=== PATIENT | male | born 1960 | race Caucasian/White ===

== ENCOUNTER 2018-06-20 09:51 | Emergency (ER) | payer OTHER ==
[2018-06-20 10:15] VITALS: BP 157/100
--- NOTE | 2018-06-20 11:38 | EDM.PDOC ---
ED HPI GENERAL MEDICAL PROBLEM - General Chief Complaint: Laceration Stated Complaint: FINGER PAIN Time Seen by Provider: 06/20/18 11:03 Source of Information: Reports: Patient History Limitations: Reports: No Limitations - History of Present Illness INITIAL COMMENTS - FREE TEXT/NARRATIVE: Patient is a 58-year-old male who presents ED complaining of a crack to the lateral aspect of the nail fold. This to the distal aspect of the finger. Tracks been present for the past 2 weeks and has not healed. Pain is localized with no swelling, redness, no drainage. There's been no recent trauma that precipitated this. 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 Patient at times does wear gloves. He is wondering what other treatment modalities may improve this condition. - Related Data Allergies Allergy/AdvReac Type Severity Reaction Status Date / Time Penicillins Allergy Respiratory Verified 06/20/18 10:15 Distress Home Meds: Home Meds buPROPion [Wellbutrin] 300 mg PO DAILY 11/30/15 [History] Past Medical History - Past Health History Medical/Surgical History: Denies Medical/Surgical History Psychiatric History: Reports: Depression Social & Family History - Family History Family Medical History: Noncontributory - Tobacco Use Smoking Status *Q: Current Every Day Smoker Years of Tobacco use: 40 Packs/Tins Daily: 0.7 Second Hand Smoke Exposure: No - Caffeine Use Caffeine Use: Reports: Coffee - Recreational Drug Use Recreational Drug Use: No ED ROS GENERAL - Review of Systems Review Of Systems: ROS reveals no pertinent complaints other than HPI. ED EXAM, SKIN/RASH Exam: See Below Exam Limited By: No Limitations General Appearance: Alert, WD/WN, No Apparent Distress Ears: Hearing Grossly Normal Nose: Normal Inspection Throat/Mouth: Normal Voice, No Airway Compromise Neck: Normal Inspection, Supple Respiratory/Chest: No Respiratory Distress, No Accessory Muscle Use Cardiovascular: Normal Peripheral Pulses, Regular Rate, Rhythm Peripheral Pulses: 2+: Radial (R) Extremities: Other (Small crack to the skin along the lateral nail fold proximal to the free edge. No swelling, no drainage, no bleeding, no redness, no other concerning findings. Patient has dry, callous, chapped skin to both hands and fingers.) Neurological: Alert, Oriented, CN II-XII Intact, Normal Cognition, No Motor/ Sensory Deficits Psychiatric: Normal Affect, Normal Mood Skin: Warm, Dry, Normal Color Course - Vital Signs Last Recorded V/S: Last Vital Signs Temp 97.6 F 06/20/18 10:12 Pulse 81 06/20/18 10:12 Resp 18 06/20/18 10:12 BP 157/100 H 06/20/18 10:12 Pulse Ox 99 06/20/18 10:12 - Re-Assessments/Exams Free Text/Narrative Re-Assessment/Exam: No antibiotics required at this time. No signs of infection. Treatment as dictated in the discharge instructions. Departure - Departure Time of Disposition: 11:35 Disposition: Home, Self-Care 01 Condition: Good Clinical Impression: Dry skin, Elevated BP without diagnosis of hypertension - Discharge Information Instructions: How to Take Your Blood Pressure, [id number], Preventing Hypertension, Managing Your Hypertension, Hypertension Referrals: Frederick Ayala MD [Primary Care Provider] - Forms: ED Department Discharge Additional Instructions: As discussed this will take some time to heal. Refrain from exposure to oils, grease, cleansers, and repeated washings of the hand. Apply triple antibiotic ointment to the affected area with heavy coat of aquaphor. Wear rubber gloves while working as a electro mechanical assembler taking or around chemicals as such. Monitor for signs of infection including: redness, swelling, worsening pain, and drainage. Followup with PCP as needed. Return to the E.D. for any new or worsening symptoms.
== END 2018-06-20 11:45 | disposition home or self-care (01) ==
LOC: JD.ED 09:51
DX: L85.3 Xerosis cutis (principal); R03.0 Elevated blood-pressure reading, without diagnosis of hypertension; F17.210 Nicotine dependence, cigarettes, uncomplicated; F32.9 Major depressive disorder, single episode, unspecified; Z88.0 Allergy status to penicillin; Z79.899 Other long term (current) drug therapy
CPT/HCPCS: 99282; 99283

== ENCOUNTER 2018-08-28 17:26 | Emergency (ER) | payer OTHER ==
[2018-08-28 17:56] VITALS: BP 162/94
--- NOTE | 2018-08-28 18:43 | EDM.PDOC ---
ED HPI GENERAL MEDICAL PROBLEM - General Chief Complaint: Respiratory Problem Stated Complaint: SORE THROAT Time Seen by Provider: 08/28/18 18:16 Source of Information: Reports: Patient History Limitations: Reports: No Limitations - History of Present Illness INITIAL COMMENTS - FREE TEXT/NARRATIVE: 58 y/o male presents to ER with cc of productive cough, green, creamy or cardenas- colored for the past week To 2 weeks. He denies any chills fever shortness of breath or chest pain. He has been taking [id number] cold medication. He reports that the also has a sore throat. He states that he feels better when he takes a cold medicine and Rajeshrsky doesn't taken Tegretol. He denies being around any sick contacts. His PCP is doctor is Dr. Elliott Onset Date: 08/14/18 Onset Time: 12:00 Duration: Getting Worse Location: Reports: Chest Quality: Reports: Ache Severity: Mild Improves with: Reports: Other (Cjdb-[id number] cold medication) Worsens with: Reports: Other (He doesn't take any medication) Associated Symptoms: Reports: cough w sputum (Report sputum is either creamy, cardenas or green) Generalized Pain Score (Numeric/FACES): 8 - Related Data Allergies Allergy/AdvReac Type Severity Reaction Status Date / Time cat dander Allergy Other Verified 08/28/18 17:56 Penicillins Allergy Respiratory Verified 08/28/18 17:56 Distress Home Meds: Home Meds buPROPion [Wellbutrin] 300 mg PO DAILY 11/30/15 [History] Benzonatate [Tessalon Perle] 100 mg PO TID PRN #20 capsule 08/28/18 [Rx] Past Medical History - Past Health History Medical/Surgical History: Denies Medical/Surgical History Psychiatric History: Reports: Depression Social & Family History - Family History Family Medical History: Noncontributory - Caffeine Use Caffeine Use: Reports: Coffee ED ROS GENERAL - Review of Systems Review Of Systems: See Below Constitutional: Denies: Fever, Chills HEENT: Reports: No Symptoms Respiratory: Reports: Cough. Denies: Shortness of Breath Cardiovascular: Reports: No Symptoms. Denies: Chest Pain Endocrine: Reports: No Symptoms GI/Abdominal: Reports: No Symptoms : Reports: No Symptoms Musculoskeletal: Reports: No Symptoms Skin: Reports: No Symptoms Neurological: Reports: No Symptoms Psychiatric: Reports: No Symptoms Hematologic/Lymphatic: Reports: No Symptoms Immunologic: Reports: No Symptoms ED EXAM, GENERAL - Physical Exam Exam: See Below Exam Limited By: No Limitations General Appearance: Alert, WD/WN, No Apparent Distress Ears: Normal External Exam, Normal Canal, Hearing Grossly Normal, Normal TMs Nose: Normal Inspection, Normal Mucosa, No Blood Throat/Mouth: Normal Inspection, Normal Lips, Normal Teeth, Normal Gums, Normal Oropharynx, Normal Voice, No Airway Compromise Head: Atraumatic, Normocephalic Neck: Normal Inspection, Supple, Non-Tender, Full Range of Motion Respiratory/Chest: No Respiratory Distress, Lungs Clear, Normal Breath Sounds, No Accessory Muscle Use, Chest Non-Tender Cardiovascular: Normal Peripheral Pulses, Regular Rate, Rhythm, No Edema, No Gallop, No JVD, No Murmur, No Rub Back Exam: Normal Inspection, Full Range of Motion Extremities: Normal Inspection, Normal Range of Motion, Non-Tender, No Pedal Edema, Normal Capillary Refill Neurological: Alert, Oriented, CN II-XII Intact, Normal Cognition, Normal Gait, Normal Reflexes, No Motor/Sensory Deficits Psychiatric: Normal Affect, Normal Mood Skin Exam: Warm, Dry, Intact, Normal Color, No Rash Lymphatic: No Adenopathy Course - Vital Signs Last Recorded V/S: Last Vital Signs Temp 98.8 F 08/28/18 17:53 Pulse 92 08/28/18 17:53 Resp 18 08/28/18 17:53 BP 162/94 H 08/28/18 17:53 Pulse Ox 97 08/28/18 17:53 - Orders/Labs/Meds Orders: Active Orders 24 hr Category Date Time Status CXR [Chest 2V] [CR] Stat Exams 08/28/18 18:16 Taken CULTURE STREP A CONFIRMATION [RM] Stat Lab 08/28/18 18:41 Results STREP SCRN A RAPID W CULT CONF [RM] Stat Lab 08/28/18 18:41 Results - Re-Assessments/Exams Free Text/Narrative Re-Assessment/Exam: 08/28/18 19:27 Your preliminary x-ray reveals no acute findings. There is a change after radiologist reads as I will contact you. Your strep screen was negative. I do not feel that you need antibiotics at this time. The symptoms are viral in nature. I will discharge home with Tessalon Perles for cough. Follow-up with Dr. Elliott as needed. Return to the emergency room for any new or acutely worsening symptoms. Departure - Departure Time of Disposition: 19:30 Disposition: Home, Self-Care 01 Condition: Good Clinical Impression: Acute bronchiolitis - Discharge Information *PRESCRIPTION DRUG MONITORING PROGRAM REVIEWED*: Not Applicable *COPY OF PRESCRIPTION DRUG MONITORING REPORT IN PATIENT RUSTY: Not Applicable Prescriptions: Benzonatate [Tessalon Perle] 100 mg PO TID PRN #20 capsule PRN Reason: Cough Referrals: Frederick Ayala MD [Primary Care Provider] - Forms: ED Department Discharge Additional Instructions: You have been diagnosed with bronchitis. Your chest x-ray revealed no acute findings. Your strep screen was negative. Follow-up with your PCP as needed. Return to the emergency room for any new or acutely worsening symptoms. - My Orders Last 24 Hours: My Active Orders 08/28/18 18:16 CXR [Chest 2V] [CR] Stat 08/28/18 18:41 CULTURE STREP A CONFIRMATION [RM] Stat STREP SCRN A RAPID W CULT CONF [RM] Stat - Assessment/Plan Last 24 Hours: My Active Orders 08/28/18 18:16 CXR [Chest 2V] [CR] Stat 08/28/18 18:41 CULTURE STREP A CONFIRMATION [RM] Stat STREP SCRN A RAPID W CULT CONF [RM] Stat
--- NOTE | 2018-08-29 08:09 | CR ---
Chest: Two views of the chest were obtained. Comparison: No prior chest x-ray is available. Increased lung markings are seen. Findings most likely represent bronchitis. No focal parenchymal densities of pneumonia are seen at this time. Mild degenerative change is noted within the spine. Heart size and mediastinum are normal. Impression: 1. Probable bronchitis. Diagnostic code #3
== END 2018-08-28 19:50 | disposition home or self-care (01) ==
LOC: JD.ED 17:26
DX: J21.9 Acute bronchiolitis, unspecified (principal); F32.9 Major depressive disorder, single episode, unspecified; Z79.899 Other long term (current) drug therapy; Z88.0 Allergy status to penicillin; Z91.09 Other allergy status, other than to drugs and biological substances
CPT/HCPCS: 71046; 71046-26; 87081; 87430; 99283; 99283-25

== ENCOUNTER 2020-10-29 11:56 | Emergency (ER) | payer OTHER ==
[2020-10-29 12:07] VITALS: BP 142/88; PULSE 83
--- NOTE | 2020-10-29 12:19 | EDM.PDOC ---
ED HPI GENERAL MEDICAL PROBLEM - General Chief Complaint: Upper Extremity Injury/Pain Stated Complaint: LT SHOULDER INJ Time Seen by Provider: 10/29/20 12:06 Source of Information: Reports: Patient, RN Notes Reviewed History Limitations: Reports: No Limitations - History of Present Illness INITIAL COMMENTS - FREE TEXT/NARRATIVE: Patient is a 60-year-old male who presents to the ER for left shoulder injury. Notes he was at work this morning, and around 10:30 AM, he was walking backwards, and ended up tripping over some things around the floor. He has had decreased range of motion, and pain in his left shoulder since. He is not taking anything for pain management. Has no loss of range of motion in his fingers, and denies any numbness or tingling distal to the injury. states he did not hit his head, or lose consciousness. Patient states his last meal was around 6 AM this morning for breakfast and has not had lunch yet. Patient denies any other sick-like symptoms, fever/chills, cough/shortness of breath, nausea/vomiting/diarrhea. His primary care provider is Dr. Elliott. Left Shoulder Pain Score (Numeric/FACES): 4 - Related Data Allergies Allergy/AdvReac Type Severity Reaction Status Date / Time cat dander Allergy Other Verified 10/29/20 12:07 Penicillins Allergy Respiratory Verified 10/29/20 12:07 Distress Home Meds: Home Meds buPROPion [Wellbutrin] 300 mg PO DAILY 11/30/15 [History] Past Medical History Cardiovascular History: Reports: CAD (states that he had some sort of blockage issue that was taken care of years ago.) Psychiatric History: Reports: Depression Social & Family History - Family History Family Medical History: No Pertinent Family History - Tobacco Use Tobacco Use Status *Q: Current Every Day Tobacco User Years of Tobacco use: 40 Packs/Tins Daily: 0.7 - Caffeine Use Caffeine Use: Reports: Coffee Other Caffeine Use: 1 pot of coffee a day - Recreational Drug Use Recreational Drug Use: No Review of Systems - Review of Systems Review Of Systems: Comprehensive ROS is negative, except as noted in HPI. ED EXAM, GENERAL - Physical Exam Exam: See Below Exam Limited By: No Limitations General Appearance: Alert, WD/WN, No Apparent Distress Respiratory/Chest: No Respiratory Distress, Lungs Clear, Normal Breath Sounds, No Accessory Muscle Use, Chest Non-Tender Cardiovascular: Normal Peripheral Pulses, Regular Rate, Rhythm, No Edema Peripheral Pulses: 2+: Radial (L), Radial (R) Extremities: Non-Tender, Normal Capillary Refill, Limited Range of Motion (of left shoulder d/t pain, states that his pain is in anterior shoulder; has rougly 30 degree ROM) Neurological: Alert, Oriented, Normal Cognition, No Motor/Sensory Deficits Psychiatric: Normal Affect, Normal Mood Skin Exam: Warm, Dry, Intact, Normal Color, No Rash Course - Vital Signs Last Recorded V/S: Last Vital Signs Temp 97.8 F 10/29/20 12:05 Pulse 83 10/29/20 12:05 Resp 16 10/29/20 12:05 BP 142/88 H 10/29/20 12:05 Pulse Ox 96 10/29/20 12:05 - Orders/Labs/Meds Meds: Medications Discontinued Medications Generic Name Dose Route Start Last Admin Trade Name Freq PRN Reason Stop Dose Admin Ketorolac Tromethamine 30 mg 10/29/20 13:14 10/29/20 13:21 Ketorolac 30 Mg/Ml Sdv IM 10/29/20 13:15 30 mg ONETIME ONE Administration - Re-Assessments/Exams Free Text/Narrative Re-Assessment/Exam: 10/29/20 12:18 Patient presents to the ER for his left shoulder injury, we will get x-rays to rule out fracture versus dislocation. 10/29/20 13:45 X-rays demonstrate no sign of any fracture or other acute dislocation. There is mild degenerative change noted. Patient was given IM Toradol for ongoing pain management. Patient has been provided with a sling to prevent further injury and/or stabilize the injury. We will discharge him home with general recommendations. Departure - Departure Time of Disposition: 13:47 Disposition: Home, Self-Care 01 Condition: Good Clinical Impression: Left shoulder pain Qualifiers: Chronicity: acute Qualified Code(s): M25.512 - Pain in left shoulder - Discharge Information *PRESCRIPTION DRUG MONITORING PROGRAM REVIEWED*: No *COPY OF PRESCRIPTION DRUG MONITORING REPORT IN PATIENT RUSTY: No Instructions: How To Use a Sling, [id number], Shoulder Pain, [id number] Referrals: Frederick Ayala MD [Primary Care Provider] - Forms: ED Department Discharge Additional Instructions: You have been evaluated in the ED for your left shoulder injury. Your x-ray demonstrated no acute fracture or other bony abnormalities. Please use ice as tolerated to the affected area. You have been provided with a sling, to prevent further injury and/or stabilize the injury you received today. You may take Tylenol 500 mg or ibuprofen 600mg q6 hrs for pain relief. Please do so until you have a tolerable level of pain with activity. Do not exceed 4000mg Tylenol or 3200mg ibuprofen in a 24 hour time period. If your symptoms do not improve roughly in 7 to 10 days time, I recommend that you follow-up with your regular care provider or orthopedics, for re-evaluation to see if MRI would be needed of the left shoulder. Please return to ED if your symptoms should change or worsen. Sepsis Event Note (ED) - Evaluation Sepsis Screening Result: No Definite Risk - Focused Exam Vital Signs: Vital Signs Temp Pulse Resp BP Pulse Ox 10/29/20 12:05 97.8 F 83 16 142/88 H 96
--- NOTE | 2020-10-29 12:51 | CR ---
Left shoulder: 3 views of the left shoulder were obtained. Comparison: No prior shoulder study is available. Mild inferior spurring is seen within the acromioclavicular joint. Glenohumeral joint shows minimal spurring off the glenoid. No acute fracture, dislocation or other bony abnormality is appreciated. Impression: 1. Mild degenerative change as noted above. 2. Nothing acute is seen. Diagnostic code #2
[2020-10-29] MEDS ORDERED: Ketorolac 30 MG/ML SDV IM ONE (13:14)
== END 2020-10-29 14:05 | disposition home or self-care (01) ==
LOC: JD.ED 11:56
DX: M25.512 Pain in left shoulder (principal); Z88.0 Allergy status to penicillin; Z91.048 Other nonmedicinal substance allergy status; Z72.0 Tobacco use
CPT/HCPCS: 73030; 96372; 99283; J1885

== ENCOUNTER 2021-06-23 17:23 | Emergency (ER) | payer OTHER ==
[2021-06-23 17:50] VITALS: BP 146/90; PULSE 99
[2021-06-23] MEDS ORDERED: Sodium Chloride 0.9% 10 ML Syringe FLUSH PRN (17:54)
--- NOTE | 2021-06-23 18:45 | EDM.PDOC ---
ED HPI GENERAL MEDICAL PROBLEM - General Chief Complaint: General Stated Complaint: EXTREME PAIN, RIBS Time Seen by Provider: 06/23/21 17:51 Source of Information: Reports: Patient History Limitations: Reports: No Limitations - History of Present Illness INITIAL COMMENTS - FREE TEXT/NARRATIVE: The patient presents with right rib pain. He slipped and fell on the 15 of June and broke a couple ribs on the right side. He was seen at the walk in clinic and was doing better. Two nights ago he could even sleep on his right side. Last night he tried that again and he is not sure what happened but he has more pain. He has no fever, chills or cough. He has no abdominal pain, nausea or vomiting. He has no health problems. He does smoke. Onset: Sudden Duration: Week(s): Location: Reports: Chest, Back Quality: Reports: Sharp Severity: Severe Improves with: Reports: Immobilization Worsens with: Reports: Breathing, Movement Context: Reports: Trauma (fell) Associated Symptoms: Reports: Chest Pain (to his back) Right Chest Pain Score (Numeric/FACES): 10 - Related Data Allergies Allergy/AdvReac Type Severity Reaction Status Date / Time cat dander Allergy Other Verified 06/23/21 17:53 Penicillins Allergy Respiratory Verified 06/23/21 17:53 Distress Home Meds: Home Meds buPROPion [Wellbutrin] 300 mg PO DAILY 11/30/15 [History] Varenicline Tartrate 1 tab PO ASDIRECTED 06/23/21 [History] Past Medical History - Past Health History Medical/Surgical History: Denies Medical/Surgical History Cardiovascular History: Reports: CAD Musculoskeletal History: Reports: Other (See Below) Other Musculoskeletal History: broken ribs Psychiatric History: Reports: ADD, Depression Social & Family History - Family History Family Medical History: No Pertinent Family History - Tobacco Use Tobacco Use Status *Q: Current Every Day Tobacco User Years of Tobacco use: 50 Packs/Tins Daily: 0.3 - Caffeine Use Caffeine Use: Reports: Soda Other Caffeine Use: 1 pot of coffee a day - Recreational Drug Use Recreational Drug Use: No ED ROS GENERAL - Review of Systems Review Of Systems: See Below Constitutional: Reports: No Symptoms HEENT: Reports: No Symptoms Respiratory: Reports: No Symptoms Cardiovascular: Reports: Chest Pain (to the right back) Endocrine: Reports: No Symptoms GI/Abdominal: Reports: No Symptoms : Reports: No Symptoms Musculoskeletal: Reports: Back Pain Skin: Reports: No Symptoms Neurological: Reports: No Symptoms ED EXAM, GENERAL - Physical Exam Exam: See Below Exam Limited By: No Limitations General Appearance: Alert, No Apparent Distress Ears: Normal External Exam Nose: Normal Inspection Head: Atraumatic, Normocephalic Neck: Normal Inspection Respiratory/Chest: No Respiratory Distress, Lungs Clear, Normal Breath Sounds Cardiovascular: Regular Rate, Rhythm, No Edema, No Murmur, No Rub GI/Abdominal: Soft, Non-Tender, No Organomegaly Back Exam: Other (Pain upon palpation to the right back near about T 10) Extremities: Normal Inspection Course - Vital Signs Last Recorded V/S: Last Vital Signs Temp 97.4 F 06/23/21 17:48 Pulse 99 06/23/21 17:48 Resp 18 06/23/21 17:48 BP 146/90 H 06/23/21 17:48 Pulse Ox 95 06/23/21 17:48 - Orders/Labs/Meds Orders: Active Orders 24 hr Category Date Time Status Cardiac Monitoring [RC] . DIRECTED Care 06/23/21 17:54 Active Chest wo Cont [CT] Stat Exams 06/23/21 17:55 Taken COMPREHENSIVE METABOLIC PN,CMP [CHEM] Stat Lab 06/23/21 18:50 Received HYDROmorphone [Dilaudid] Med 06/23/21 19:16 Once 1 mg IM ONETIME ONE Medication Orders Hydromorphone HCl (Hydromorphone 1 Mg/Ml Syringe) 1 mg IM ONETIME ONE Stop: 06/23/21 19:17 Labs: Laboratory Tests 06/23/21 Range/Units 18:50 WBC 12.77 H (4.23-9.07) K/mm3 RBC 5.35 (4.63-6.08) M/mm3 Hgb 16.4 (13.7-17.5) gm/dl Hct 49.3 (40.1-51.0) % MCV 92.1 (79.0-92.2) fl MCH 30.7 (25.7-32.2) pg MCHC 33.3 (32.2-35.5) g/dl RDW Std Deviation 45.1 H (35.1-43.9) fL Plt Count 378 H (163-337) K/mm3 MPV 8.7 L (9.4-12.3) fl Neut % (Auto) 76.1 H (34.0-67.9) % Lymph % (Auto) 13.8 L (21.8-53.1) % [place] % (Auto) 8.2 (5.3-12.2) % Eos % (Auto) 1.5 (0.8-7.0) Baso % (Auto) 0.2 (0.1-1.2) % Neut # (Auto) 9.73 H (1.78-5.38) K/mm3 Lymph # (Auto) 1.76 (1.32-3.57) K/mm3 [place] # (Auto) 1.05 H (0.30-0.82) K/mm3 Eos # (Auto) 0.19 (0.04-0.54) K/mm3 Baso # (Auto) 0.02 (0.01-0.08) K/mm3 Meds: Medications Generic Name Dose Route Start Last Admin Trade Name Freq PRN Reason Stop Dose Admin Hydromorphone HCl 1 mg 06/23/21 19:16 Hydromorphone 1 Mg/Ml Syringe IM 06/23/21 19:17 ONETIME ONE Discontinued Medications Generic Name Dose Route Start Last Admin Trade Name Freq PRN Reason Stop Dose Admin Hydromorphone HCl 1 mg 06/23/21 18:49 Hydromorphone 1 Mg/Ml Syringe IVPUSH 06/23/21 18:50 ONETIME ONE Sodium Chloride 10 ml 06/23/21 17:54 Sodium Chloride 0.9% 10 Ml Syringe FLUSH ASDIRECTED PRN Keep Vein Open - Re-Assessments/Exams Free Text/Narrative Re-Assessment/Exam: 06/23/21 18:49 I ordered an IV saline lock, labs, CT of his chest and dilaudid 1mg IV. 06/23/21 19:16 His WBC is elevated at 12.7. His CT shows mildly displaced fractures of the right posterior 11th and 12th ribs. There is a small amount of right pleural fluid. Asymmetric enlargement of the left thyroid lobe. Recommend US if not already performed. I will give him a shot of dilaudid. The patient did not get his IV before the CT and no dilaudid by IV so I will give it IM. He has an incentive spirometer at home. I will have him use that. Departure - Departure Time of Disposition: 19:25 Disposition: Home, Self-Care 01 Condition: Good Clinical Impression: Rib fractures Qualifiers: Encounter type: initial encounter Fracture type: closed Laterality: right Qualified Code(s): S22.41XA - Multiple fractures of ribs, right side, initial encounter for closed fracture - Discharge Information *PRESCRIPTION DRUG MONITORING PROGRAM REVIEWED*: Not Applicable *COPY OF PRESCRIPTION DRUG MONITORING REPORT IN PATIENT RUSTY: Not Applicable Referrals: Frederick Ayala MD [Primary Care Provider] - 1 Week Forms: ED Department Discharge Additional Instructions: Take the hydrocodone 1 to 2 pills by mouth every 6 hours as needed for pain. Use the incentive spirometer 10 breaths every other hour while awake for 5 days. You thyroid was asymmetric on the left side. The radiologist recommended an ultrasound be done. Follow up with your doctor to have that done. Please return if you are worse. Sepsis Event Note (ED) - Focused Exam Vital Signs: Vital Signs Temp Pulse Resp BP Pulse Ox 06/23/21 17:48 97.4 F 99 18 146/90 H 95 - My Orders Last 24 Hours: My Active Orders 06/23/21 17:54 Cardiac Monitoring [RC] . DIRECTED 06/23/21 17:55 Chest wo Cont [CT] Stat 06/23/21 18:50 COMPREHENSIVE METABOLIC PN,CMP [CHEM] Stat 06/23/21 19:16 HYDROmorphone [Dilaudid] 1 mg IM ONETIME ONE - Assessment/Plan Last 24 Hours: My Active Orders 06/23/21 17:54 Cardiac Monitoring [RC] . DIRECTED 06/23/21 17:55 Chest wo Cont [CT] Stat 06/23/21 18:50 COMPREHENSIVE METABOLIC PN,CMP [CHEM] Stat 06/23/21 19:16 HYDROmorphone [Dilaudid] 1 mg IM ONETIME ONE
[2021-06-23] MEDS ORDERED: HYDROmorphone 1 MG/ML Syringe IVPUSH ONE (18:49)
[2021-06-23] MEDS ORDERED: HYDROmorphone 1 MG/ML Syringe IM ONE (19:16)
--- NOTE | 2021-06-24 09:26 | CT ---
EXAM: CT CHEST W/O LOCATION: [facility]urry DATE/TIME: 06/23/2021 6:13 PM INDICATION: Fall on 06/15/2020 rt sided rib pain/fractures COMPARISON: 08/28/2018 CXR TECHNIQUE: CT chest without IV contrast. Multiplanar reformats were obtained. Dose reduction techniques were used. CONTRAST: None. FINDINGS: LUNGS AND PLEURA: Mild emphysema and scarring. There is a small amount of right pleural fluid. MEDIASTINUM/AXILLAE: Asymmetric enlargement of the left thyroid lobe. There is a suspected 16 mm lowattenuation lesion within the left thyroid lobe. CORONARY ARTERY CALCIFICATION: Mild. UPPER ABDOMEN: Small nonobstructing left renal calculus. MUSCULOSKELETAL: There are minimally displaced fractures of the right posterior 11th and 12th ribs. IMPRESSION: 1. Mildly displaced fractures of the right posterior 11th and 12th ribs. There is a small amount of right pleural fluid. 2. Asymmetric enlargement of the left thyroid lobe. Recommend ultrasound if not already performed. REFERENCE: Fer DON et al. Managing Incidental Thyroid Nodules Detected on Imaging: White Paper of the ACR Incidental Thyroid Findings Committee. JACR 2015; 12:143-150. SIGNED BY: Darshan Steel MD 06/23/2021 8:05 PM BREANNA
== END 2021-06-23 19:34 | disposition home or self-care (01) ==
LOC: JD.ED 17:23
DX: S22.41XA Multiple fractures of ribs, right side, initial encounter for closed fracture (principal); I25.10 Atherosclerotic heart disease of native coronary artery without angina pectoris; Z72.0 Tobacco use; Z88.0 Allergy status to penicillin; Z91.048 Other nonmedicinal substance allergy status; W01.0XXA Fall on same level from slipping, tripping and stumbling without subsequent striking against object, initial encounter
CPT/HCPCS: 36415; 71250; 80053; 85025; 96372; 99284; J1170